=== PATIENT | male | born 1955 | race Caucasian/White ===

== ENCOUNTER 2016-10-31 17:42 | Emergency (ER) | payer OTHER ==
[~2016-10-31] VITALS: Ht 165.1 cm; Wt 63.5 kg
[2016-10-31] MEDS ORDERED: ASPIRIN 81 MG TAB.CHEW PO ONE (18:45)
[2016-10-31] MEDS ORDERED: IV NORMAL SALINE 500ML BAG 500 ML IV ONE (18:45)
[2016-10-31 18:57] LABS: BASO % 0 % (0-3); EOS % 1 % (0-3); HEMATOCRIT 44.2 % (39.0-53.0); HEMOGLOBIN 15.2 g/dL (13.0-17.5); LYMPH # 0.2 x10^3/uL (1.0-4.8); LYMPH % 1 % (24-48); MEAN CORPUSCULAR HEMOGLOBIN 32 pg (25-35); MEAN CORPUSCULAR HGB CONC 34 g/dL (31-37); MEAN CORPUSCULAR VOLUME 93 fL (79-100); MONO % 2 % (0-9); NEUT % 95 % (31-73); PLATELET COUNT 148 x10^3/uL (140-400); RED BLOOD COUNT 4.74 x10^6/uL (4.30-5.70); WHITE BLOOD COUNT 16.4 x10^3/uL (4.0-11.0)
[2016-10-31 19:15] LABS: CALCIUM 9.4 mg/dL (8.5-10.1); GFR 76.2; POTASSIUM 3.6 mmol/L (3.5-5.1)
[2016-10-31 19:21] LABS: DIRECT BILIRUBIN 0.1 mg/dL (0.0-0.2); MAGNESIUM 2.1 mg/dL (1.8-2.4); TOTAL BILIRUBIN 0.9 mg/dL (0.2-1.0)
[2016-10-31 19:30] LABS: CKMB INDEX 1.3 % (0-4); CKMB MASS 3.1 ng/mL (0.0-3.6)
[2016-10-31 20:08] LABS: % EOS 4 % (0-5)
[2016-10-31 20:10] LABS: PLT ESTIMATE ADEQUATE (ADEQUATE)
[2016-10-31 20:11] LABS: OVALOCYTES OCC
[2016-10-31 20:29] LABS: BILIRUBIN,URINE NEGATIVE (NEG); GLUCOSE,URINE NEGATIVE (NEG); NITRITE,URINE NEGATIVE (NEG); PROTEIN,URINE NEGATIVE (NEG-TRACE); UROBILINOGEN,URINE 0.2 mg/dL (0.2 mg/dL)
[2016-10-31 20:39] LABS: BACTERIA,URINE 0 /HPF (0-FEW); SQUAMOUS EPITHELIAL CELL,UR OCC /LPF
[2016-10-31 20:43] VITALS: BP 135/80
--- NOTE | 2016-10-31 20:56 | PHYS DOC ---
Past Medical History Past Medical History: No Pertinent History Past Surgical History: No Surgical History Alcohol Use: None Drug Use: None Adult General Chief Complaint Chief Complaint: DIZZY/LIGHT HEADED HPI HPI Patient is a 61 year old male who presents with complaint of near syncope. Patient states that he experienced the episode prior to arrival while at work. Patient states that he had a sudden increase in work load which caused him to become very stressed. The patient states that he suddenly started feeling very lightheaded. The patient states that he attempted to sit down and started to feel worse. Patient states that he put his head and between his knees while setting and this kept him from losing consciousness. The patient states currently he feels slightly queasy and has mild generalized weakness. Patient denies any history of similar symptoms. This took place approximately an hour prior to arrival. The patient denies any history of heart disease. Patient does admit to history of hypertension and likely untreated hyperlipidemia. The patient states that he did not keep up on his fluid intake today which he normally does. The patient did not have any associated chest pain but states he did become diaphoretic during the episode. Review of Systems Review of Systems Constitutional: Lightheadedness, Denies fever or chills [] Eyes: Denies change in visual acuity, redness, or eye pain [] HENT: Denies nasal congestion or sore throat [] Respiratory: Denies cough or shortness of breath [] Cardiovascular: Denies chest pain or edema [] GI: Denies abdominal pain, nausea, vomiting, bloody stools or diarrhea [] : Denies dysuria or hematuria [] Musculoskeletal: Denies back pain or joint pain [] Integument: Denies rash or skin lesions [] Neurologic: Denies headache, focal weakness or sensory changes [] Endocrine: Denies polyuria or polydipsia [] Current Medications Current Medications Current Medications Medications (Trade) Dose Ordered Sig/Patrice Start Time Stop Time Status Last Admin Dose Admin Aspirin 324 mg 324 mg 1X ONCE 10/31/16 18:45 10/31/16 18:46 DC 10/31/16 18:54 324 MG Sodium Chloride (Iv Sodium Chloride 0.9% 500ml Bag) 500 ml @ 500 mls/hr 1X ONCE 10/31/16 18:45 10/31/16 19:44 DC 10/31/16 18:55 500 MLS/HR Allergies Allergies Allergies Coded Allergies Type Severity Reaction Last Updated Verified No Known Drug Allergies 10/31/16 No Physical Exam Physical Exam Constitutional: Well developed, well nourished, no acute distress, non-toxic appearance. [] HENT: Normocephalic, atraumatic, bilateral external ears normal, oropharynx moist, no oral exudates, nose normal. [] Eyes: PERRLA, EOMI, conjunctiva normal, no discharge. [] Neck: Normal range of motion, no tenderness, supple, no stridor. [] Cardiovascular:Heart rate regular rhythm, no murmur [] Lungs & Thorax: Bilateral breath sounds clear to auscultation [] Abdomen: Bowel sounds normal, soft, no tenderness, no masses, no pulsatile masses. [] Skin: Warm, dry, no erythema, no rash. [] Back: No tenderness, no CVA tenderness. [] Extremities: No tenderness, no cyanosis, no clubbing, ROM intact, no edema. [] Neurologic: Alert and oriented X 3, normal motor function, normal sensory function, no focal deficits noted. [] Current Patient Data Vital Signs Vital Signs Date Time Temp Pulse Resp B/P Pulse Ox O2 Delivery O2 Flow Rate FiO2 10/31/16 20:43 94 18 135/80 96 Room Air 10/31/16 17:57 98.0 98.0 Lab Values Laboratory Tests Test 10/31/16 18:00 10/31/16 20:15 White Blood Count 16.4x10^3/uL (4.0-11.0) H Red Blood Count 4.74x10^6/uL (4.30-5.70) Hemoglobin 15.2g/dL (13.0-17.5) Hematocrit 44.2% (39.0-53.0) Mean Corpuscular Volume 93fL (79-100) Mean Corpuscular Hemoglobin 32pg (25-35) Mean Corpuscular Hemoglobin Concent 34g/dL (31-37) Red Cell Distribution Width 13.0% (11.5-14.5) Platelet Count 148x10^3/uL (140-400) Neutrophils (%) (Auto) 95% (31-73) H Lymphocytes (%) (Auto) 1% (24-48) L Monocytes (%) (Auto) 2% (0-9) Eosinophils (%) (Auto) 1% (0-3) Basophils (%) (Auto) 0% (0-3) Neutrophils # (Auto) 15.6x10^3uL (1.8-7.7) H Lymphocytes # (Auto) 0.2x10^3/uL (1.0-4.8) L Monocytes # (Auto) 0.3x10^3/uL (0.0-1.1) Eosinophils # (Auto) 0.1x10^3/uL (0.0-0.7) Basophils # (Auto) 0.0x10^3/uL (0.0-0.2) Segmented Neutrophils % 94% (35-66) H Monocytes % 2% (0-10) Eosinophils % 4% (0-5) Platelet Estimate Adequate (ADEQUATE) Ovalocytes Occ Sodium Level 144mmol/L (136-145) Potassium Level 3.6mmol/L (3.5-5.1) Chloride Level 106mmol/L (98-107) Carbon Dioxide Level 27mmol/L (21-32) Anion Gap 11 (6-14) Blood Urea Nitrogen 22mg/dL (8-26) Creatinine 1.0mg/dL (0.7-1.3) Estimated GFR (Cockcroft-Gault) 76.2 Glucose Level 95mg/dL (70-99) Calcium Level 9.4mg/dL (8.5-10.1) Magnesium Level 2.1mg/dL (1.8-2.4) Total Bilirubin 0.9mg/dL (0.2-1.0) Direct Bilirubin 0.1mg/dL (0.0-0.2) Aspartate Amino Transferase (AST) 36U/L (15-37) Alanine Aminotransferase (ALT) 35U/L (16-63) Alkaline Phosphatase 89U/L (46-116) Creatine Kinase 233U/L (39-308) Creatine Kinase MB (Mass) 3.1ng/mL (0.0-3.6) Creatine Kinase MB Relative Index 1.3% (0-4) Troponin I Quantitative < 0.017ng/mL (0.000-0.055) XS-Pyk-R-Type Natriuretic Peptide 71pg/mL (0-124) Total Protein 7.0g/dL (6.4-8.2) Albumin 4.0g/dL (3.4-5.0) Urine Collection Type Unknown Urine Color Yellow Urine Clarity Clear Urine pH 8.0 Urine Specific [place] 1.020 Urine Protein Negativemg/dL (NEG-TRACE) Urine Glucose (UA) Negativemg/dL (NEG) Urine Ketones (Stick) Tracemg/dL (NEG) Urine Blood Negative (NEG) Urine Nitrite Negative (NEG) Urine Bilirubin Negative (NEG) Urine Urobilinogen Dipstick 0.2mg/dL (0.2 mg/dL) Urine Leukocyte Esterase Negative (NEG) Urine RBC 3-5/HPF (0-2) Urine WBC 1-4/HPF (0-4) Urine Squamous Epithelial Cells Occ/LPF Urine Amorphous Sediment Present/HPF Urine Bacteria 0/HPF (0-FEW) Urine Mucus Slight/LPF Laboratory Tests 10/31/16 18:00 Laboratory Tests 10/31/16 18:00 EKG EKG Interpreted by me: Heart rate 83, sinus rhythm, normal intervals, normal axis, no acute ST/T-wave abnormalities present [] Radiology/Procedures Radiology/Procedures One view AP chest x-ray interpreted by me: No infiltrates, no effusions, normal cardiac silhouette [] Course & Med Decision Making Course & Med Decision Making Pertinent Labs and Imaging studies reviewed. (See chart for details) Patient was given IV fluids and aspirin in the emergency department. On reevaluation, patient states that his symptoms of resolved and he feels much better at this time. The patient's symptoms appear consistent with a vasovagal episode. The patient's lab work was unremarkable for any acute cardiac pathology. Patient did not experience any chest pain and patient did not show any significant ectopy on his cardiac monitoring while in the emergency department. After speaking with the patient I feel comfortable with referring him for outpatient follow-up to Dr. Lyle of cardiology in 2-3 days. The patient will continue on 81 mg aspirin daily. Advised return to emergency department for any worsening symptoms. Dragon Disclaimer Dragon Disclaimer This electronic medical record was generated, in whole or in part, using a voice recognition dictation system. Departure Departure Impression: Primary Impression: Vasovagal episode Disposition: HOME, SELF-CARE Condition: IMPROVED Referrals: UNKNOWN PCP NAME (PCP) Patient Instructions: Syncope Additional Instructions: You had an episode today that appears to be consistent with a fainting episode, also known as a vasovagal episode. Your lab work and x-rays appear normal. It is recommended that you start on a daily aspirin (81mg once daily) , drink plenty of fluids, and follow-up with Dr. Lyle of cardiology in the next 3 days. Return to the emergency department for any worsening symptoms. ROZINA JOHNSON MD Oct 31, 2016 20:56
--- NOTE | 2016-11-01 06:58 | EKG ---
[facility] [address] [place] [address] Test Date: 2016-10-31 Test Time: 17:54:10 Pat Name: AVILA LEWIS Department: Room: Gender: M [employer] Registrar: : [id number] Requested By: ROZINA JOHNSON Order Number: [id number] Reading MD: Luis Martinez Measurements Intervals [place] Rate: 83 P: 60 TN: 126 QRS: 25 QRSD: 88 T: 39 QT: 346 QTc: 407 Interpretive Statements SINUS RHYTHM NO SPECIFIC ECG ABNORMALITIES Electronically Signed On 11-01-2016 15:07:22 [employer] by Luis Martinez
--- NOTE | 2016-11-01 08:47 | RAD ---
Indication: Near syncope. Time of exam 1846 hours. No prior studies are available for comparison. FINDINGS: The heart size is normal. The lungs are clear. No pleural effusion or pneumothorax is identified. The pulmonary vascularity is normal. IMPRESSION: No acute abnormality detected.
== END 2016-10-31 21:10 | disposition home or self-care (01) ==
LOC: ER 17:42
DX: R55 Syncope and collapse (principal); E78.5 Hyperlipidemia, unspecified; I10 Essential (primary) hypertension
CPT/HCPCS: 36415; 71010; 80048; 80076; 81001; 82553; 83735; 83880; 84484; 85007; 85027; 93005; 96360; 96361; 99285; J7040